=== PATIENT | female | born 1980 | race American Indian/Alaskan Native ===

== ENCOUNTER 2019-05-02 02:30 | Emergency (ER) | payer MEDICAID ==
[2019-05-02] MEDS ORDERED: PERCOCET 5/325 PO ONE (04:27)
[2019-05-02] MEDS ORDERED: TORADOL IM ONE (04:27)
[2019-05-02] MEDS ORDERED: ZOFRAN ODT PO ONE (04:27)
[2019-05-02] MEDS ORDERED: DECADRON IM ONE (04:27)
--- NOTE | 2019-05-02 05:17 | Emergency Department Report ---
ED Extremity Problem HPI - General Chief complaint: Extremity Injury, Lower Stated complaint: LEFT FOOT PAIN Time Seen by Provider: 05/02/19 04:15 Source: patient Mode of arrival: Ambulatory Limitations: No Limitations - History of Present Illness Initial comments: Patient is a 38-year-old -[place] female with a history of chronic left knee and ankle and presents to the ED with complaint of acute exacerbation of her chronic left knee and ankle pain and swelling for the last 2 months, worse in the last 1 week. Patient states that pain is worse with any ambulation or weight-bearing. Patient denies fall, traumatic injury, nausea, vomiting, chest pain, shortness of breath, low back pain, dizziness, fever, chills, numbness and tingling or weakness of lower extremities bilaterally MD Complaint: extremity pain (LEFT KNEE, LEFT ANKLE), extremity swelling (left ankle), joint swelling (left ankle), joint paint (left knee and ankle) -: Gradual, month(s) (2) Location: left, lower extremity, knee, other (ankle) History of Same: Yes (chronic) -: Yes myalgia, Yes arthralgia, No fever, No associated dyspnea, No associated chest pain Radiation: distal Severity scale (0 -10): 8 Quality: aching, sharp Consistency: constant Improves with: nothing Worsens with: weight bearing, walking, exertion, palpation Associated Symptoms: denies other symptoms, arthralgias. denies: chest pain, shortness of breath, fever, myalgias, rash - Related Data Previous Rx's Medication Instructions Recorded Last Taken Type Ibuprofen [Motrin] 800 mg PO Q8HR PRN #20 tablet 05/02/19 Unknown Rx predniSONE [Deltasone] 60 mg PO QDAY #15 tab 05/02/19 Unknown Rx tiZANidine [Zanaflex 4mg TAB] 4 mg PO Q8H PRN #18 tablet 05/02/19 Unknown Rx traMADol [Ultram] 50 mg PO Q6HR PRN #15 tab 05/02/19 Unknown Rx ED Review of Systems ROS: Stated complaint: LEFT FOOT PAIN Other details as noted in HPI Constitutional: denies: chills, fever Eyes: denies: eye pain, eye discharge, vision change ENT: denies: ear pain, throat pain Respiratory: denies: cough, shortness of breath, wheezing Cardiovascular: denies: chest pain, palpitations Endocrine: no symptoms reported Gastrointestinal: denies: abdominal pain, nausea, diarrhea Genitourinary: denies: urgency, dysuria, discharge Musculoskeletal: joint swelling (left ankle and knee), arthralgia (left knee and ankle). denies: back pain Skin: denies: rash, lesions Neurological: denies: headache, weakness, paresthesias Psychiatric: denies: anxiety, depression Hematological/Lymphatic: denies: easy bleeding, easy bruising ED Past Medical Hx - Past Medical History Previous Medical History?: Yes Hx Hypertension: Yes Hx Asthma: Yes - Surgical History Past Surgical History?: Yes Hx Cholecystectomy: Yes Additional Surgical History: leg sx, c-sec X4 - Social History Smoking Status: Current Every Day Smoker Substance Use Type: None - Medications Home Medications: Home Medications Medication Instructions Recorded Confirmed Last Taken Type Ibuprofen [Motrin] 800 mg PO Q8HR PRN #20 tablet 05/02/19 Unknown Rx predniSONE [Deltasone] 60 mg PO QDAY #15 tab 05/02/19 Unknown Rx tiZANidine [Zanaflex 4mg TAB] 4 mg PO Q8H PRN #18 tablet 05/02/19 Unknown Rx traMADol [Ultram] 50 mg PO Q6HR PRN #15 tab 05/02/19 Unknown Rx ED Physical Exam - General Limitations: No Limitations General appearance: alert, in no apparent distress - Head Head exam: Present: atraumatic, normocephalic, normal inspection - Eye Eye exam: Present: normal appearance, PERRL, EOMI Pupils: Present: normal accommodation - ENT ENT exam: Present: normal exam, normal orophraynx, mucous membranes moist, TM's normal bilaterally, normal external ear exam - Neck Neck exam: Present: normal inspection, full ROM - Respiratory Respiratory exam: Present: normal lung sounds bilaterally. Absent: respiratory distress, wheezes, rales, rhonchi, chest wall tenderness, accessory muscle use, decreased breath sounds - Cardiovascular Cardiovascular Exam: Present: regular rate, normal rhythm, normal heart sounds. Absent: systolic murmur, diastolic murmur, rubs, gallop - GI/Abdominal GI/Abdominal exam: Present: soft, normal bowel sounds. Absent: distended, tenderness, guarding, rebound, hyperactive bowel sounds, hypoactive bowel sounds, organomegaly - Rectal Rectal exam: Present: deferred - Extremities Exam Extremities exam: Present: normal inspection, full ROM, tenderness (Palpable left knee and ankle tenderness with swelling), normal capillary refill, joint swelling (left ankle and knee). Absent: pedal edema, calf tenderness - Back Exam Back exam: Present: normal inspection, full ROM. Absent: tenderness, CVA tenderness (L), muscle spasm, paraspinal tenderness, vertebral tenderness - Neurological Exam Neurological exam: Present: alert, oriented X3, CN II-XII intact, normal gait, reflexes normal - Psychiatric Psychiatric exam: Present: normal affect, normal mood - Skin Skin exam: Present: warm, dry, intact, normal color. Absent: rash ED Course Vital Signs 05/02/19 02:34 Temperature 97.8 F Pulse Rate 97 H Respiratory 20 Rate Blood Pressure 141/89 O2 Sat by Pulse 98 Oximetry - Reevaluation(s) Reevaluation #1: 05/02/19 05:17 Patient is alert and oriented 3 and is not in distress. Patient was treated for pain in the ED and discharged home on pain medications and muscle relaxants and advised to follow-up with her primary care physician in 7-10 days for reevaluation. Patient advised to return to the ED immediately if symptoms get worse. ED Medical Decision Making - Medical Decision Making Patient is alert and oriented 3 and is not in distress. Patient was treated for pain in the ED and discharged home on pain medications and muscle relaxants and advised to follow-up with her primary care physician in 7-10 days for reevaluation. Patient advised to return to the ED immediately if symptoms get worse. - Differential Diagnosis chronic osteoarthritis; chronic tendinitis; muscle strain of left leg Critical care attestation.: If time is entered above; I have spent that time in minutes in the direct care of this critically ill patient, excluding procedure time. ED Disposition Clinical Impression: Tendonitis of ankle, Chronic osteoarthritis Muscle strain of left lower leg Qualifiers: Encounter type: initial encounter Qualified Code(s): S86.912A - Strain of unspecified muscle(s) and tendon(s) at lower leg level, left leg, initial encounter Disposition: TO HOME OR SELFCARE Is pt being admited?: No Does the pt Need Aspirin: No Condition: Stable Instructions: Muscle Strain (ED), Tendinitis (ED), Osteoarthritis (ED) Additional Instructions: Take medications with food, drink plenty of fluids and follow-up with your primary care physician in 7-10 days for reevaluation. Return to the ED immediately if symptoms get worse. Prescriptions: predniSONE [Deltasone] 60 mg PO QDAY #15 tab Ibuprofen [Motrin] 800 mg PO Q8HR PRN #20 tablet PRN Reason: Pain , Severe (7-10) traMADol [Ultram] 50 mg PO Q6HR PRN #15 tab PRN Reason: Pain tiZANidine [Zanaflex 4mg TAB] 4 mg PO Q8H PRN #18 tablet PRN Reason: Spasms Referrals: MIKAYLA ORONA MD [Primary Care Provider] - 3-5 Days Time of Disposition: 05:19 Print Language: ARMENIAN
[2019-05-02 05:59] VITALS: BP 139/84
== END 2019-05-02 05:57 | disposition home or self-care (01) ==
LOC: ED 02:30
DX: S86.912A Strain of unspecified muscle(s) and tendon(s) at lower leg level, left leg, initial encounter (principal); M77.9 Enthesopathy, unspecified; M19.072 Primary osteoarthritis, left ankle and foot; I10 Essential (primary) hypertension; J45.909 Unspecified asthma, uncomplicated; F17.200 Nicotine dependence, unspecified, uncomplicated; Z90.49 Acquired absence of other specified parts of digestive tract; Z79.899 Other long term (current) drug therapy; X58.XXXA Exposure to other specified factors, initial encounter; Y93.89 Activity, other specified; Y92.89 Other specified places as the place of occurrence of the external cause; Y99.8 Other external cause status
CPT/HCPCS: 96372; 99282; J1100; J1885; Q0162

== ENCOUNTER 2020-12-15 23:13 | Emergency (ER) | payer MEDICAID ==
[2020-12-16 00:16] VITALS: BP 152/107
--- NOTE | 2020-12-16 00:28 | Emergency Department Report ---
ED General Adult HPI - General Chief complaint: Earache Stated complaint: EAR/THROAT PAIN Time Seen by Provider: 12/16/20 00:17 Source: patient Mode of arrival: Ambulatory Limitations: No Limitations - History of Present Illness Initial comments: Patient is a 40-year-old female presents emergency room with complaints of right-sided earache that began 3 weeks ago. Patient states that her primary care doctor took a look in her ear and said that it was normal but placed her on amoxicillin and naproxen. She states that it did improve some but she continues to have pain. She states that she also has referred pain to the right side of the throat. She denies any difficulty swallowing. She denies any hearing difficulty or drainage from the ear. She denies any fever, cough, shortness of breath, nausea, vomiting, diarrhea. She states that she has been advised in the past that she does have elevated blood pressure. She denies any medication all ergies. Severity scale (0 -10): 6 - Related Data Previous Rx's Medication Instructions Recorded Last Taken Type Ibuprofen [Motrin] 800 mg PO Q8HR PRN #20 tablet 05/02/19 Unknown Rx predniSONE [Deltasone] 60 mg PO QDAY #15 tab 05/02/19 Unknown Rx tiZANidine [Zanaflex 4mg TAB] 4 mg PO Q8H PRN #18 tablet 05/02/19 Unknown Rx traMADoL [Ultram] 50 mg PO Q6HR PRN #15 tab 05/02/19 Unknown Rx ED Review of Systems ROS: Stated complaint: EAR/THROAT PAIN Other details as noted in HPI Comment: All other systems reviewed and negative ED Past Medical Hx - Past Medical History Hx Hypertension: Yes Hx Asthma: Yes - Surgical History Hx Cholecystectomy: Yes Additional Surgical History: leg sx, c-sec X4 - Social History Smoking Status: Current Some Day Smoker - Medications Home Medications: Home Medications Medication Instructions Recorded Confirmed Last Taken Type Ibuprofen [Motrin] 800 mg PO Q8HR PRN #20 tablet 05/02/19 Unknown Rx predniSONE [Deltasone] 60 mg PO QDAY #15 tab 05/02/19 Unknown Rx tiZANidine [Zanaflex 4mg TAB] 4 mg PO Q8H PRN #18 tablet 05/02/19 Unknown Rx traMADoL [Ultram] 50 mg PO Q6HR PRN #15 tab 05/02/19 Unknown Rx ED Physical Exam - General Limitations: No Limitations General appearance: alert, in no apparent distress - Head Head exam: Present: atraumatic, normocephalic - Eye Eye exam: Present: normal appearance - ENT ENT exam: Present: normal orophraynx, mucous membranes moist, TM's normal bilaterally, normal external ear exam, other (no mastoid ttp bilaterally, uvula is midline no uvular edema or deviation, no tonsilar hypertrophy or exudates) - Respiratory Respiratory exam: Present: normal lung sounds bilaterally. Absent: respiratory distress, wheezes, rales, rhonchi, stridor, chest wall tenderness, accessory m uscle use, decreased breath sounds, prolonged expiratory - Cardiovascular Cardiovascular Exam: Present: regular rate, normal rhythm, normal heart sounds. Absent: systolic murmur, diastolic murmur, rubs, gallop - Neurological Exam Neurological exam: Present: alert, oriented X3 - Psychiatric Psychiatric exam: Present: normal affect, normal mood - Skin Skin exam: Present: warm, dry, intact ED Course Vital Signs 12/16/20 00:09 Temperature 98.0 F Pulse Rate 91 H Respiratory 18 Rate Blood Pressure 152/107 [Right] O2 Sat by Pulse 100 Oximetry ED Medical Decision Making - Medical Decision Making Patient is a 40-year-old female presents emergency room with complaints of right-sided earache that began 3 weeks ago. Patient states that her primary care doctor took a look in her ear and said that it was normal but placed her on amoxicillin and naproxen. She states that it did improve some but she continues to have pain. She states that she also has referred pain to the right side of the throat. She denies any difficulty swallowing. She denies any hearing difficulty or drainage from the ear. She denies any fever, cough, shortness of breath, nausea, vomiting, diarrhea. She states that she has been advised in the past that she does have elevated blood pressure. She denies any medication allergies. Vitals are stable. No signs of otitis media, otitis externa, TM perforation, mastoiditis on exam. No signs of tonsillitis, pharyngitis, sialoadenitis, peritonsillar abscess on exam at this time. symptoms could be viral in origin. no signs of bacterial infection at this time. pt will be referred to ENT. advised pt May take Tylenol or ibuprofen as needed for discomfort. May use Mucinex or pseudoephedrine [id number] to help clear out the ears. May use bqke-mpk-[id number] ear relief drops. Follow-up with your primary care doctor. Follow-up with a ENT doctor. Return to emergency room for any worsening symptoms. Critical care attestation.: If time is entered above; I have spent that time in minutes in the direct care of this critically ill patient, excluding procedure time. ED Disposition Clinical Impression: Otalgia of right ear, Sore throat Disposition: TO HOME OR SELFCARE Is pt being admited?: No Does the pt Need Aspirin: No Condition: Stable Instructions: Earache, Adult Additional Instructions: May take Tylenol or ibuprofen as needed for discomfort. May use Mucinex or pseudoephedrine [id number] to help clear out the ears. May use tzla-[id number]-zwlhquf ear relief drops. Follow-up with your primary care doctor. Follow-up with a ENT doctor. Return to emergency room for any worsening symptoms. Referrals: DR TUNDE [Other] - 2-3 Days SHARLA FRENCH MD [Staff Physician] - 2-3 Days [facility] [Provider Group] - 2-3 Days [facility] [Provider Group] - 2-3 Days Forms: Work/School Release Form(ED) Time of Disposition: 00:27 Print Language: YI
== END 2020-12-16 00:35 | disposition home or self-care (01) ==
LOC: ED 23:13
DX: J02.9 Acute pharyngitis, unspecified (principal); H92.01 Otalgia, right ear; I10 Essential (primary) hypertension; J45.909 Unspecified asthma, uncomplicated; Z90.49 Acquired absence of other specified parts of digestive tract; Z98.890 Other specified postprocedural states; Z79.1 Long term (current) use of non-steroidal anti-inflammatories (NSAID); Z79.899 Other long term (current) drug therapy
CPT/HCPCS: 99282

== ENCOUNTER 2021-10-31 20:07 | Emergency (ER) | payer MEDICAID ==
--- NOTE | 2021-10-31 23:29 | Emergency Department Report ---
ED General Adult HPI - General Chief complaint: High BP Stated complaint: BLOOD PRESSURE CONCERNS Time Seen by Provider: 10/31/21 23:09 Source: patient Mode of arrival: Ambulatory Limitations: No Limitations - History of Present Illness Initial comments: Patient presents mostly with upper abdominal pain and anxiety. For the last couple of days, she has been having epigastric pain and upper abdominal fullness. She states that there is "something going on there." This is made her blood pressure elevate. She states that she has trouble breathing because of this. She just does not feel right. She has not had vomiting or diarrhea. She has been nauseous. There is no hematemesis. She has had no dysuria frequency. There is no back pain. She does not have chest pain associated with it. Patient states he has never had symptoms like this before. She has been taking her blood pressure medication, but her blood pressure has been elevated. That makes her more anxious. - Related Data Previous Rx's Medication Instructions Recorded Last Taken Type Pantoprazole Sodium [Protonix] 40 mg PO DAILY #30 tab 11/01/21 Unknown Rx Sucralfate [Carafate] 1 gm PO ACHS #120 tablet 11/01/21 Unknown Rx Allergies Allergy/AdvReac Type Severity Reaction Status Date / Time No Known Allergies Allergy Unverified 10/31/21 23:13 ED Review of Systems ROS: Stated complaint: BLOOD PRESSURE CONCERNS Other details as noted in HPI Comment: All other systems reviewed and negative Constitutional: denies: fever Eyes: denies: vision change ENT: denies: epistaxis Respiratory: denies: cough Cardiovascular: denies: chest pain Endocrine: denies: unexplained weight loss Gastrointestinal: as per HPI Genitourinary: denies: dysuria Musculoskeletal: denies: back pain Skin: denies: rash Neurological: denies: headache Psychiatric: as per HPI Hematological/Lymphatic: denies: easy bruising ED Past Medical Hx - Past Medical History Hx Hypertension: Yes Hx Asthma: Yes - Surgical History Hx Cholecystectomy: Yes Additional Surgical History: leg sx, c-sec X4 - Family History Family history: hypertension - Social History Smoking Status: Current Some Day Smoker - Medications Home Medications: Home Medications Medication Instructions Recorded Confirmed Last Taken Type Pantoprazole Sodium [Protonix] 40 mg PO DAILY #30 tab 11/01/21 Unknown Rx Sucralfate [Carafate] 1 gm PO ACHS #120 tablet 11/01/21 Unknown Rx ED Physical Exam - General Limitations: No Limitations, Other (Pulse ox noted and normal) General appearance: alert, in no apparent distress, anxious - Head Head exam: Present: atraumatic, normocephalic - Eye Eye exam: Present: normal appearance, EOMI - ENT ENT exam: Present: normal external ear exam - Neck Neck exam: Present: normal inspection. Absent: meningismus - Respiratory Respiratory exam: Present: normal lung sounds bilaterally. Absent: respiratory distress - Cardiovascular Cardiovascular Exam: Present: regular rate, normal rhythm - GI/Abdominal GI/Abdominal exam: Present: soft, tenderness (Epigastric). Absent: distended, guarding, rebound, pulsatile mass - Extremities Exam Extremities exam: Present: normal capillary refill - Back Exam Back exam: Absent: CVA tenderness (R), CVA tenderness (L) - Neurological Exam Neurological exam: Present: alert, oriented X3, CN II-XII intact, normal gait. Absent: motor sensory deficit - Psychiatric Psychiatric exam: Present: anxious - Skin Skin exam: Present: warm, dry ED Course Vital Signs 10/31/21 23:12 Temperature 98.5 F Pulse Rate 79 Respiratory 18 Rate Blood Pressure 153/94 [Right] O2 Sat by Pulse 98 Oximetry - Reevaluation(s) Reevaluation #1: 10/31/21 23:28 Blood pressure been noted. Labs and EKG were ordered. Old records noted. Reevaluation #2: 11/01/21 01:17 Labs were noted and the patient was discharged ED Medical Decision Making - Lab Data Result diagrams: 10/31/21 23:46 10/31/21 23:46 - Medical Decision Making Patient presents with epigastric pain. Etiology for this is not known. She does not appear to be septic or toxic. There is no evidence of acute hepatitis or pancreatitis. She does not have right upper quadrant tenderness suggestive of biliary disease. There is no distention or tympany to suggest bowel obstruction. There is no pulsatile mass suggestive of AAA. I do not believe this represents referred pain from ACS. Patient was treated symptomatically. She certainly could have gastritis or an ulcer. She can be followed for outpatient GI evaluation. Critical Care Time: No Critical care attestation.: If time is entered above; I have spent that time in minutes in the direct care of this critically ill patient, excluding procedure time. ED Disposition Clinical Impression: Acute epigastric pain, Elevated blood pressure reading Disposition: HOME / SELF CARE / HOMELESS Is pt being admited?: No Condition: Stable Instructions: Abdominal Pain, Adult, Iqra-ya-Ozmi, Hypertension, Adult Additional Instructions: Have a bland diet. Drink plenty water. Return for problems. Avoid salt. Continue to follow your blood pressures and control your blood pressures. Avoid caffeine. Return for any problems or concerns. Talk to your regular doctor about GI referral. Prescriptions: Sucralfate [Carafate] 1 gm PO ACHS #120 tablet Pantoprazole Sodium [Protonix] 40 mg PO DAILY #30 tab Referrals: PRIMARY CARE, [Primary Care Provider] - 3-5 Days MIKAYLA ORONA MD [Staff Physician] - 3-5 Days DANA ANDRADE MD [Staff Physician] - 3-5 Days
[2021-10-31] MEDS ORDERED: hydrOXYzine HCL 25 MG TAB PO ONE (23:40)
[2021-11-01 00:16] LABS: Hematocrit 47.8 % (30.3-42.9); Hemoglobin 16.3 gm/dl (10.1-14.3); Mean Corpuscular HGB Conc 34 % (30-34); Mean Corpuscular Volume 89 fl (79-97); Platelet Count 343 K/mm3 (140-440); Red Blood Count 5.39 M/mm3 (3.65-5.03); Red Cell Distribution Width 13.3 % (13.2-15.2)
[2021-11-01 00:41] LABS: Alanine Aminotransferase 21 units/L (7-56); BUN/Creatinine Ratio 11; Blood Urea Nitrogen 8 mg/dL (7-17); Hemolysis Index 58
[2021-11-01] MEDS ORDERED: ACETAMINOPHEN 500 MG TAB PO ONE (01:38)
[2021-11-01 03:00] VITALS: BP 144/92
--- NOTE | 2021-11-04 08:38 | Electrocardiograph Report ---
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
== END 2021-11-01 02:59 | disposition home or self-care (01) ==
LOC: ED 20:07
DX: R10.13 Epigastric pain (principal); R03.0 Elevated blood-pressure reading, without diagnosis of hypertension; J45.909 Unspecified asthma, uncomplicated; Z90.49 Acquired absence of other specified parts of digestive tract; Z98.890 Other specified postprocedural states; F17.200 Nicotine dependence, unspecified, uncomplicated
CPT/HCPCS: 36415; 80053; 83690; 84484; 85027; 93005; 99283; Q0177